=== PATIENT | female | born 1955 | race Caucasian/White ===

== ENCOUNTER 2017-02-08 17:43 | Emergency (ER) | payer SELFPAY ==
[2017-02-08] MEDS ORDERED: ONDANSETRON ODT 8 MG TAB SL ONE (17:55)
--- NOTE | 2017-02-08 17:55 | ED.PDOC ---
History of Present Illness - General Chief Complaint: GI Problem Stated Complaint: n/v Time Seen by Provider: 02/08/17 17:54 Additional Information: Patient presents to ED with complaining of GI side effects related to Rx (azathioprine for Sjogren's). Pt nontoxic in no acute distress. Pt with moist mucus membranes. Orthostatics obtained and normal. Pt did well with one dose of Zofran ODT. Pt stable for discharge to home with Rx for Zofran ODT. - History of Present Illness Timing/Duration: 1 week Severity: mild Improving Factors: nothing Worsening Factors: medication - azathioprine Associated Symptoms: nausea/vomiting, other - diarrhea Home Medications: Ambulatory Orders Ondansetron [Ondansetron Odt] 4 mg PO TID PRN #15 tab 02/08/17 Review of Systems - Review of Systems Constitutional: States: no symptoms reported EENTM: States: no symptoms reported Respiratory: States: no symptoms reported Cardiology: States: no symptoms reported Gastrointestinal/Abdominal: States: see HPI, abdominal pain, diarrhea, nausea Genitourinary: States: no symptoms reported Musculoskeletal: States: no symptoms reported Skin: States: no symptoms reported Neurological: States: no symptoms reported Endocrine: States: no symptoms reported Hematologic/Lymphatic: States: no symptoms reported Family Medical History - Family History Mother Family History: Unknown Physical Exam - Physical Exam General Appearance: Alert, Comfortable, Well Developed, Well Groomed, Well Hydrated, Well Nourished Eye Exam: bilateral normal Ears, Nose, Throat: hearing grossly normal, normal ENT inspection, normal pharynx Neck: non-tender, full range of motion, supple Respiratory: no respiratory distress, no accessory muscle use Cardiovascular/Chest: normal peripheral pulses, regular rate, rhythm Gastrointestinal/Abdominal: non tender, soft Back Exam: normal inspection Extremity: normal range of motion, non-tender, normal inspection, no pedal edema Neurologic: cad designer II-XII nml as tested, no motor/sensory deficits, alert, normal mood/affect, oriented x 3 Skin Exam: normal color Departure - Departure Clinical Impression: Nausea Time of Disposition: 18:29 Disposition: Discharge to Home or Self Care Condition: Good Departure Forms: ED Discharge - Pt. Copy, Patient Portal Self Enrollment Instructions: Nausea and Vomiting-Adult Referrals: Grady Miles MD [Primary Care Provider] - 1-2 Weeks Prescriptions: Ondansetron [Ondansetron Odt] 4 mg PO TID PRN #15 tab PRN Reason: Nausea Home Medications: Ambulatory Orders Ondansetron [Ondansetron Odt] 4 mg PO TID PRN #15 tab 02/08/17 Additional Instructions: Take Zofran as prescribed. Discuss further treatment for Sjogren's with Fertilizer Loader and/or Primary Care Provider.
[2017-02-08 17:57] VITALS: BP 111/64; TEMP 96.9; O2SAT 100
== END 2017-02-08 18:35 | disposition home or self-care (01) ==
LOC: ER 17:43
DX: R11.2 Nausea with vomiting, unspecified (principal); M35.00 Sjogren syndrome, unspecified

== ENCOUNTER → 2018-01-27 | Outpatient (CLI) | payer MEDICARE, OTHER | LOC: YCFC.O 11:43 | PROVIDERS: ATTEND Family Medicine | DX: N39.0 Urinary tract infection, site not specified (principal) ==

== ENCOUNTER → 2018-02-06 | Outpatient (CLI) | payer MEDICARE, OTHER | LOC: YCFC.O 08:46 | PROVIDERS: ATTEND Family Medicine | DX: Z00.00 Encounter for general adult medical examination without abnormal findings (principal); N39.0 Urinary tract infection, site not specified; R94.5 Abnormal results of liver function studies; E78.5 Hyperlipidemia, unspecified ==

== ENCOUNTER → 2018-02-17 | Outpatient (CLI) | payer MEDICARE, OTHER ==
--- NOTE | 2018-02-19 14:34 | MAM ---
EXAM DESCRIPTION: 3D Screening BILATERAL : Digital Mammography. CLINICAL HISTORY: 63 years Female SCREENING . No complaints. No personal history of breast cancer. Mother with breast cancer. Childbirth. Postmenopausal. HRT 5 or more years ago.. Lifetime risk of developing breast cancer (Tyrer-Cuzick model) is 11.4 %. COMPARISON: 2-D digital screening bilateral study 02/02/2014. No prior reports available. TECHNIQUE: Bilateral CC and MLO projection full-field images, Digital tomosynthesis mammographic technique. Bilateral digital 2-D full-field MLO images. CAD not utilized. FINDINGS: The breast parenchymal density pattern is: Scattered areas of fibroglandular density. No skin thickening or nipple retraction. Bilateral solitary microcalcifications. Bilateral axillary lymph nodes. No new focal, stellate mass or density, focal asymmetry , and no suspicious microcalcifications bilaterally. Stable mammograms compared to prior study. Taking into account, differences in mammographic technique. IMPRESSION: Benign exam. BIRAD CATEGORY: 2 BENIGN FINDINGS. RECOMMENDATIONS: FOLLOW UP: Routine digital bilateral screening, one year interval from January 2018. Written communication explaining the IMPRESSION and follow-up, will be mailed to the patient and referring health care provider. According to the [employer], yearly mammograms are recommended starting at age 40 and continuing as long as a woman is in good health. Any breast change noted on a breast self-exam should be reported promptly to the patient's healthcare provider. Breast MRI is recommended for women with an approximately 20-25% or greater lifetime risk of breast cancer, including women with a strong family history of breast or ovarian cancer and women who have been treated for Hodgkin's disease. A negative mammographic report should not delay tissue diagnosis in patients with significant clinical history or physical findings. Extremely dense breast tissue limits the sensitivity of digital mammography. Electronically signed by: Km Byers MD 02/19/2018 2:32 PM CDT
== END ==
LOC: MAMMO 09:00
PROVIDERS: ATTEND Family Medicine
DX: Z12.31 Encounter for screening mammogram for malignant neoplasm of breast (principal)

== ENCOUNTER 2018-04-20 05:48 | Day surgery (SDC) | payer MEDICARE, OTHER ==
[2018-04-20] MEDS ORDERED: MIDAZOLAM INJ 2 MG/2 ML VIAL IV ONE (05:49)
[2018-04-20] MEDS ORDERED: PROPARACAINE 0.5% OPHTH SOL 15 ML BTTL ONE (11:53)
[2018-04-20] MEDS ORDERED: TROP 1%/CYCLOPEN 1%/PHENYL 2% DROPS ONE (11:54)
[2018-04-20] MEDS ORDERED: LIDOCAINE 1% MPF 5 ML VIAL INJ ONE (13:36)
[2018-04-20] MEDS ORDERED: DEXAMETHASONE 0.1% OPHTH SOL 1 DROP LEFT_EYE ONE ×2 (13:38→13:49)
[2018-04-20] MEDS ORDERED: TOBRAMYCIN SULF 0.3 % OPHT SOL 1 DROP LEFT_EYE ONE ×2 (13:39→13:49)
[2018-04-20] MEDS ORDERED: BRIMONIDINE 0.2% OPHTH DROPS LEFT_EYE ONE ×2 (13:39→13:49)
== END 2018-04-20 14:23 | disposition home or self-care (01) ==
LOC: AMB 05:48
PROVIDERS: ATTEND Ophthalmology
DX: H25.12 Age-related nuclear cataract, left eye (principal); G43.909 Migraine, unspecified, not intractable, without status migrainosus; N05.9 Unspecified nephritic syndrome with unspecified morphologic changes; Z88.2 Allergy status to sulfonamides; Z88.0 Allergy status to penicillin
CPT/HCPCS: 00142; 66984; J2250

== ENCOUNTER → 2018-04-29 | Outpatient (CLI) | payer MEDICARE, OTHER ==
--- NOTE | 2018-04-29 15:08 | RAD ---
EXAM DESCRIPTION: Hand,Right 2 Views CLINICAL HISTORY: HAND PAIN COMPARISON: None Available. TECHNIQUE: AP, LATERAL FINDINGS: The visualized bones appear well mineralized. No acute fracture or dislocation. The soft tissues appear grossly unremarkable. IMPRESSION: Normal radiographs of the right hand. Electronically signed by: Eriberto Layton MD 04/29/2018 3:07 PM [facility]
--- NOTE | 2018-04-29 15:09 | RAD ---
EXAM DESCRIPTION: Cervical Spine,3 Views CLINICAL HISTORY: 63 years Female, NECK PAIN COMPARISON: None. FINDINGS: Lateral masses of C1 are in good alignment with no intrahepatic masses of C2. The vertebral body heights are well-maintained with no acute compression deformity. Intervertebral disc spaces are well preserved. No evidence of subluxation. IMPRESSION: Normal radiographs of the cervical spine. Electronically signed by: Eriberto Layton MD 04/29/2018 3:08 PM [facility]
== END ==
LOC: YCFC.O 11:48
PROVIDERS: ATTEND Family Medicine
DX: M54.2 Cervicalgia (principal); M79.641 Pain in right hand; M35.00 Sjogren syndrome, unspecified

== ENCOUNTER 2018-05-04 05:45 | Day surgery (SDC) | payer MEDICARE, OTHER ==
[2018-05-04] MEDS ORDERED: TROP 1%/CYCLOPEN 1%/PHENYL 2% DROPS ONE (08:24)
[2018-05-04] MEDS ORDERED: PROPARACAINE 0.5% OPHTH SOL 15 ML BTTL ONE (08:24)
[2018-05-04] MEDS ORDERED: LIDOCAINE 1% MPF 5 ML VIAL INJ ONE (10:23)
[2018-05-04] MEDS ORDERED: BRIMONIDINE 0.2% OPHTH DROPS RIGHT_EYE ONE ×2 (10:24→10:38)
[2018-05-04] MEDS ORDERED: TOBRAMYCIN SULF 0.3 % OPHT SOL 1 DROP RIGHT_EYE ONE ×2 (10:24→10:38)
[2018-05-04] MEDS ORDERED: DEXAMETHASONE 0.1% OPHTH SOL 1 DROP RIGHT_EYE ONE ×2 (10:24→10:38)
[2018-05-04] MEDS ORDERED: MIDAZOLAM INJ 2 MG/2 ML VIAL IV ONE (10:30)
== END 2018-05-04 11:15 | disposition home or self-care (01) ==
LOC: AMB 05:45
PROVIDERS: ATTEND Ophthalmology
DX: H26.9 Unspecified cataract (principal); Z88.0 Allergy status to penicillin; Z88.2 Allergy status to sulfonamides
CPT/HCPCS: 00142; 66984; J2250

== ENCOUNTER → 2018-07-01 | Outpatient (CLI) | payer MEDICARE, OTHER | LOC: YCFC.O 09:38 | PROVIDERS: ATTEND Family Medicine | DX: R55 Syncope and collapse (principal); M35.00 Sjogren syndrome, unspecified; R53.83 Other fatigue ==

== ENCOUNTER → 2018-07-22 | Outpatient (CLI) | payer MEDICARE, OTHER | LOC: YCFC.O 15:03 | PROVIDERS: ATTEND Family Medicine | DX: R68.89 Other general symptoms and signs (principal) ==

== ENCOUNTER → 2018-12-08 | Outpatient (CLI) | payer MEDICARE, OTHER | LOC: LAB.O 12:25 | PROVIDERS: ATTEND Family Medicine | DX: R63.5 Abnormal weight gain (principal); R74.8 Abnormal levels of other serum enzymes; R53.83 Other fatigue; R25.2 Cramp and spasm ==

== ENCOUNTER → 2019-03-18 | Outpatient (CLI) | payer MEDICARE, OTHER | LOC: YCFC.O 09:37 | PROVIDERS: ATTEND Family Medicine | DX: R06.09 Other forms of dyspnea (principal); R74.8 Abnormal levels of other serum enzymes ==

== ENCOUNTER → 2019-03-22 | Outpatient (CLI) | payer MEDICARE, OTHER | LOC: NM 08:55 | PROVIDERS: ATTEND Family Medicine | DX: R06.09 Other forms of dyspnea (principal) ==

== ENCOUNTER → 2019-12-13 | Outpatient (CLI) | payer MEDICARE, OTHER | LOC: YCFC.O 13:51 | PROVIDERS: ATTEND Family Medicine | DX: R05 Cough (principal) ==

== ENCOUNTER → 2020-04-04 | Outpatient (CLI) | payer MEDICARE, OTHER | LOC: YCFC.O 12:23 | PROVIDERS: ATTEND Nurse Practitioner Family | DX: Z20.828 Contact with and (suspected) exposure to other viral communicable diseases (principal) ==